=== PATIENT | male | born 1975 | race Caucasian/White ===

== ENCOUNTER 2017-05-21 21:24 | Emergency (ER) | payer MEDICAID, OTHER ==
[~2017-05-21] VITALS: Ht 172.7 cm; Wt 77.3 kg
[2017-05-21 22:08] VITALS: Ht 172.7 cm; Wt 77.3 kg
[2017-05-21] MEDS ORDERED: LIDOCAINE 1% (MDV) 20 ML INJ SC ONE (23:00)
[2017-05-21] MEDS ORDERED: HYDROCODONE/APAP (10/325) TAB PO ONE (23:30)
--- NOTE | 2017-05-21 23:38 | RADRPT ---
PROCEDURE: XR Wrist. CLINICAL INDICATION: Laceration. Left wrist pain TECHNIQUE: AP, lateral and oblique views of the left wrist were performed. COMPARISON: No prior studies are available for comparison. FINDINGS: No evidence of fracture, dislocation, or subluxation is seen. The bones appear well mineralized. The joint spaces are well preserved. Soft tissue swelling with bandaging and laceration about the dista l ulna are noted. RPTAT:HJJR IMPRESSION: Bandaging and soft tissue laceration about the distal ulna without acute osseous abnormality of the left wrist. Physician Bisi Date Time Electronically viewed and signed by Physician Bisi on 05/21/2017 23:37 /
--- NOTE | 2017-05-21 23:38 | RADRPT ---
PROCEDURE: XR Forearm. CLINICAL INDICATION: Laceration. Left forearm pain TECHNIQUE: AP and lateral views of the left forearm were obtained. COMPARISON: No prior studies are available for comparison. FINDINGS: There is normal mineralization and alignment. The radius and ulna are unremarkable. No fracture or o sseous lesion is identified. The joint spaces are preserved at the elbow and wrist. Soft tissue lace ration of the distal forearm is present with associated bandaging. RPTAT:HJJR IMPRESSION: Soft tissue laceration of the distal left forearm without retained radiopaque foreign body of acute osseous abnormality. Physician Bisi Date Time Electronically viewed and signed by Physician Bisi on 05/21/2017 23:38 /
--- NOTE | 2017-05-21 23:39 | RADRPT ---
PROCEDURE: XR Hand. CLINICAL INDICATION: Laceration. Left hand pain TECHNIQUE: PA, oblique and lateral views of the left hand were obtained. COMPARISON: None available. FINDINGS: Mineralization is within normal limits. No fracture or osseous lesion is identified. Joint spaces are preserved. Soft tissue laceration and bandaging about the fifth digit noted. There is no evide nce of retained radiopaque foreign body. RPTAT:HJJR IMPRESSION: No evidence of acute osseous abnormality involving the left hand. Physician Bisi Date Time Electronically viewed and signed by Physician Bisi on 05/21/2017 23:39 /
[2017-05-22] MEDS ORDERED: HYDR-906 PO (00:15)
[2017-05-22] MEDS ORDERED: CEPH-443 PO (00:15)
[2017-05-22] MEDS ORDERED: IBUP-1542 PO (00:15)
--- NOTE | 2017-05-22 00:35 | ERD ---
ER Documentation Chief Complaint Date/Time DATE: 05/22/17 TIME: 00:28 Chief Complaint left hand pain and laceration s/p hit by piece of glass HPI This is a 42-year-old male presenting to emergency department for left hand and wrist laceration. Patient states he was lifting a heavy near out of a pickup truck when it slipped and fell lacerating his left wrist and hand. Patient has 2.5 inch jagged laceration to lateral left wrist and 1.5 cm laceration to dorsal left hand. Patient states bleeding soon stopped after injury. No shattered or broken glass. Denies numbness or tingling. No loss of sensation. Patient can move all digits on left hand. ROS All systems reviewed and are negative except as per history of present illness. Medications Home Meds Active Scripts Ibuprofen* (Motrin*) 600 Mg Tab, 600 MG PO Q6, #15 TAB Prov:CLAUDIA ELLISON NP 05/22/17 Hydrocodone/Acetaminophen ([place] 5-325 Tablet) 1 Each Tablet, 1 TAB PO Q6H Y for PAIN, #7 TAB Prov:CLAUDIA ELLISON NP 05/22/17 Cephalexin* (Keflex*) 500 Mg Capsule, 500 MG PO QID for 5 Days, CAP Prov:CLAUDIA ELLISON NP 05/22/17 PMhx/Soc Medical and Surgical Hx: pt denies Medical Hx, pt denies Surgical Hx Hx Alcohol Use: No Hx Substance Use: No Hx Tobacco Use: No Smoking Status: Never smoker Physical Exam Vitals Vital Signs Date Time Temp Pulse Resp B/P Pulse Ox O2 Delivery O2 Flow Rate FiO2 05/21/17 22:08 98.5 74 18 117/82 95 Physical Exam Const: Alert Head: Atraumatic Eyes: Normal Conjunctiva ENT: Normal External Ears, Nose and Mouth. Neck: Full range of motion..~ No meningismus. Resp: Clear to auscultation bilaterally Cardio: Regular rate and rhythm, no murmurs Abd: Soft, non tender, non distended. Normal bowel sounds Skin: 2.5 inch jagged laceration to lateral left wrist. 1.5 cm jagged laceration to dorsal left hand near proximal third digit. No foreign body noted or palpated. Back: No midline or flank tenderness Ext: No cyanosis, or edema. Sensation fully intact. Capillary refill less than 3 seconds. Neur: Awake and alert Psych: Normal Mood and Affect Results 24 hrs Current Medications Medications (Trade) Dose Ordered Sig/Ronel Route PRN Reason Start Time Stop Time Status Last Admin Dose Admin Lidocaine (Xylocaine 1% (Mdv) 20 ml) 20 ml ONCE ONCE SC 05/21/17 23:00 05/21/17 23:01 DC Acetaminophen/ Hydrocodone Bitart ([place] (10)) 1 tab ONCE ONCE PO 05/21/17 23:30 05/21/17 23:31 DC 05/21/17 23:30 Procedures/MDM [place] [address] Radiology Main Line: [phone] DIAGNOSTIC IMAGING REPORT Patient: CORRIE HUITRON : 1975 Age: 42 Sex: M MR #: [id number] DOS: 05/21/172241 Ordering MD: CLAUDIA ELLISON NP Location: FTE Room/Bed: PROCEDURE: XR Forearm. CLINICAL INDICATION: Laceration. Left forearm pain TECHNIQUE: AP and lateral views of the left forearm were obtained. COMPARISON: No prior studies are available for comparison. FINDINGS: There is normal mineralization and alignment. The radius and ulna are unremarkable. No fracture or osseous lesion is identified. The joint spaces are preserved at the elbow and wrist. Soft tissue laceration of the distal forearm is present with associated bandaging. RPTAT:HJJR IMPRESSION: Soft tissue laceration of the distal left forearm without retained radiopaque foreign body of acute osseous abnormality. [place] [address] Radiology Main Line: [phone] DIAGNOSTIC IMAGING REPORT Patient: CORRIE HUITRON : 1975 Age: 42 Sex: M MR #: [id number] DOS: 05/21/172241 Ordering MD: CLAUDIA ELLISON NP Location: FTE Room/Bed: PROCEDURE: XR Hand. CLINICAL INDICATION: Laceration. Left hand pain TECHNIQUE: PA, oblique and lateral views of the left hand were obtained. COMPARISON: None available. FINDINGS: Mineralization is within normal limits. No fracture or osseous lesion is identified. Joint spaces are preserved. Soft tissue laceration and bandaging about the fifth digit noted. There is no evidence of retained radiopaque foreign body. RPTAT:HJJR IMPRESSION: No evidence of acute osseous abnormality involving the left hand. [place] [address] Radiology Main Line: [phone] DIAGNOSTIC IMAGING REPORT Patient: CORRIE HUITRON : 1975 Age: 42 Sex: M MR #: [id number] DOS: 05/21/17 2242 Ordering MD: CLAUDIA ELLISON NP Location: FTE Room/Bed: PROCEDURE: XR Wrist. CLINICAL INDICATION: Laceration. Left wrist pain TECHNIQUE: AP, lateral and oblique views of the left wrist were performed. COMPARISON: No prior studies are available for comparison. FINDINGS: No evidence of fracture, dislocation, or subluxation is seen. The bones appear well mineralized. The joint spaces are well preserved. Soft tissue swelling with bandaging and laceration about the distal ulna are noted. RPTAT:HJJR IMPRESSION: Bandaging and soft tissue laceration about the distal ulna without acute osseous abnormality of the left wrist. MDM: This is a 42-year-old male presenting to the emergency department for laceration to lateral left wrist and dorsal left hand after dropping a large heavy glass mirror onto left arm. X-ray left hand, x-ray left wrist and x-ray left forearm ordered.X-ray left hand reviewed by radiologist as no evidence of acute osseous abnormality and involving the left hand. X-ray left wrist reviewed by radiologist as bandaging and soft tissue laceration about the distal ulna without acute osseous abnormality of the left wrist. X-ray left forearm reviewed by radiologist as soft tissue laceration of the distal left forearm without retained radiopaque foreign body of acute osseous abnormality. Sensation is fully intact. Patient is able to flex and extend all 5 digits on left hand. Denies numbness or tingling. Capillary refill less than 3 seconds. Laceration repair as detailed below. Laceration Repair by me: Verbal consent obtained prior to procedure. Anesthesia: 1% lidocaine locally Location: Lateral left wrist, dorsal left hand Tendon/Joint/Nerves: No injury Foreign body: None detected after copious irrigation and exploration Technique: 8 to lateral left wrist simple Interrupted Sutures and Dermabond applied to dorsal left hand with Steri-Strips. Complexity: No subcutaneous sutures/mucosal repair/ edge excision Post Closure Length: 2.5 inches- wrist, 1.5 cm- hand Patient's bleeding was easily controlled in the department and there is no indication of anemia. No evidence of compartment syndrome, neurologic injury, vascular injury, open joint, tendon laceration, or foreign body. Patient is appropriate for outpatient follow up. Patient is given prescription for Keflex, ibuprofen and Cambridge. Xray left wrist velcro applied while in the ED and patient remains neurovascularly intact. 48 hour wound check. Scar minimization instructions given. Return to ED for any high fever, chest pain, difficulty breathing, shortness breath, wheezing, vomiting, diarrhea, abdominal pain or any new or worsening symptoms. Patient verbalizes understanding. All questions answered at discharge. Departure Diagnosis: Primary Impression: Laceration Condition: Stable Patient Instructions: Laceration, Hand Referrals: [facility] YOU HAVE RECEIVED A MEDICAL SCREENING EXAM AND THE RESULTS INDICATE THAT YOU DO NOT HAVE A CONDITION THAT REQUIRES URGENT TREATMENT IN THE EMERGENCY DEPARTMENT. FURTHER EVALUATION AND TREATMENT OF YOUR CONDITION CAN WAIT UNTIL YOU ARE SEEN IN YOUR DOCTORS OFFICE WITHIN THE NEXT 1-2 DAYS. IT IS YOUR RESPONSIBILITY TO MAKE AN APPOINTMENT FOR [facility]UP [facility]ARE. IF YOU HAVE A PRIMARY DOCTOR --you should call your primary doctor and schedule an appointment IF YOU DO NOT HAVE A PRIMARY DOCTOR YOU CAN CALL OUR PHYSICIAN REFERRAL HOTLINE AT IF YOU CAN NOT AFFORD TO SEE A PHYSICIAN YOU CAN CHOSE FROM THE FOLLOWING [facility] [address] [facility]. [facility] [address] [facility] [address] [facility]. [facility] [address] [facility]. [facility] [address] [facility]. [facility]. [address] [facility]. [facility] YOU HAVE RECEIVED A MEDICAL SCREENING EXAM AND THE RESULTS INDICATE THAT YOU DO NOT HAVE A CONDITION THAT REQUIRES URGENT TREATMENT IN THE EMERGENCY DEPARTMENT. FURTHER EVALUATION AND TREATMENT OF YOUR CONDITION CAN WAIT UNTIL YOU ARE SEEN IN YOUR DOCTORS OFFICE WITHIN THE NEXT 1-2 DAYS. IT IS YOUR RESPONSIBILITY TO MAKE AN APPOINTMENT FOR FOLOW-UP CARE. IF YOU HAVE A PRIMARY DOCTOR --you should call your primary doctor and schedule and appointment IF YOU DO NOT HAVE A PRIMARY DOCTOR YOU CAN CALL OUR PHYSICIAN REFERRAL HOTLINE AT . IF YOU CAN NOT AFFORD TO SEE A PHYSICIAN YOU CAN CHOSE FROM THE FOLLOWING [facility] INSTITUTIONS: [facility] [address] [place] [address] [facility] [address] [place] [address] [facility] + [facility] [address] [place] [address] Additional Instructions: Return to this facility in 2 DAYS for a follow-up exam.Return sooner if your condition worsens. Return to ED for any high fever, chest pain, difficulty breathing, shortness breath, wheezing, vomiting, diarrhea, abdominal pain or any new or worsening symptoms. CLAUDIA ELLISON NP May 22, 2017 00:35
[2017-05-22 00:59] VITALS: BP 115/68; PULSE 78; RESP 18; TEMP 98.6
== END 2017-05-22 01:01 | disposition home or self-care (01) ==
LOC: FTE 21:24
DX: S61.512A Laceration without foreign body of left wrist, initial encounter (principal); S61.412A Laceration without foreign body of left hand, initial encounter; W25.XXXA Contact with sharp glass, initial encounter; Y92.9 Unspecified place or not applicable
CPT/HCPCS: 12002; 73090; 73110; 73130; Z7502; Z7610

== ENCOUNTER 2017-05-23 18:19 | Emergency (ER) | payer MEDICAID ==
[~2017-05-23] VITALS: Ht 177.8 cm; Wt 77.5 kg
[~2017-05-23 18:19] MED LIST: CEPH-443 PO; HYDR-906 PO; IBUP-1542 PO
[2017-05-23 18:23] VITALS: Ht 177.8 cm; Wt 77.5 kg
[2017-05-23] MEDS ORDERED: HYDROCODONE/APAP (5/325) TAB PO ONE (20:00)
--- NOTE | 2017-05-23 20:01 | ERD ---
ER Documentation Chief Complaint Date/Time DATE: 05/23/17 TIME: 19:56 Chief Complaint 2nd day wound check on left hand and wrist HPI 42-year-old male presents to emergency department for a wound check on the left hand and left wrist area, patient was seen here 2 days ago, had a Dermabond placed on the laceration in the dorsal aspect of the left hand and some sutures placed on the left forearm. No fractures were on affected area. Patient denies any opening of the wound. Patient denies any numbness or tingling, patient denies any discharge or redness. Patient's complaining of pain sharp pain 4/10 scale, worse upon touching the area. ROS All systems reviewed and are negative except as per history of present illness. Medications Home Meds Active Scripts Ibuprofen* (Motrin*) 600 Mg Tab, 600 MG PO Q6, #15 TAB Prov:CLAUDIA ELLISON NP 05/22/17 Hydrocodone/Acetaminophen ([place] 5-325 Tablet) 1 Each Tablet, 1 TAB PO Q6H Y for PAIN, #7 TAB Prov:CLAUDIA ELLISON NP 05/22/17 Cephalexin* (Keflex*) 500 Mg Capsule, 500 MG PO QID for 5 Days, CAP Prov:CLAUDIA ELLISON NP 05/22/17 Allergies Allergies: Coded Allergies: No Known Allergy (Unverified , 05/23/17) PMhx/Soc Medical and Surgical Hx: pt denies Medical Hx, pt denies Surgical Hx Hx Alcohol Use: No Hx Substance Use: No Hx Tobacco Use: No Smoking Status: Never smoker FmHx Family History: No coronary disease, No diabetes, No other Physical Exam Vitals Vital Signs Date Time Temp Pulse Resp B/P Pulse Ox O2 Delivery O2 Flow Rate FiO2 05/23/17 18:23 98.8 68 18 120/78 99 Physical Exam GENERAL: The patient is well developed and appropriate for usual state of health, in no apparent distress. CHEST: Clear to auscultation bilaterally. There are no rales, wheezes or rhonchi. HEART: Regular rate and rhythm. No murmurs, clicks, rubs or gallops. No S3 or S4. ABDOMEN: Soft, nontender and nondistended. Good bowel sounds. No rebound or guarding. No gross peritonitis. No gross organomegaly or masses. No Ospina sign or McBurney point tenderness. BACK: No midline or flank tenderness. EXTREMITIES: Equal pulses bilaterally. There is no peripheral clubbing, cyanosis or edema. No focal swelling or erythema. Full range of motion. Grossly neurovascularly intact. NEURO: Alert and oriented. Cranial nerves 2-12 intact. Motor strength in all 4 extremities with 5/5 strength. Sensation grossly intact. Normal speech and gait. SKIN: Noted healing wound on the dorsal aspect of the left hand with Dermabond in place and Steri-Strips in place. Noted laceration wound in the left forearm to be healing well, no gaping of the wound, sutures are in place, no redness or swelling, no purulent discharge There is no apparent rash or petechia. The skin is warm and dry. HEMATOLOGIC AND LYMPHATIC: There is no evidence of excessive bruising or lymphedema. No gross cervical, axillary, or inguinal lymphadenopathy. Results 24 hrs Current Medications Medications (Trade) Dose Ordered Sig/Ronel Route PRN Reason Start Time Stop Time Status Last Admin Dose Admin Acetaminophen/ Hydrocodone Bitart ([place] (5/325)) 1 tab ONCE ONCE PO 05/23/17 20:00 05/23/17 20:01 Patient was given medication for pain here in emergency department, after treatment, patient verbalized feeling much better. Patient's pain is improved. Procedures/MDM Medical decision making: Patient's left hand and left wrist laceration was healing well, no fractures were on affected area, no redness or swelling, no gaping of the wound. No symptoms of any infection. Prescription were given before for ibuprofen and [place] and Keflex and advised to continue taking medications. No symptoms of any neurovascular compromise. Patient was advised to have the maximo removed in 7-10 days, keep the Dermabond the area dry for at least 7-10 days. Patient was advised to return to emergency department sooner for any worsening symptoms. Finger metal splint was applied on the left third finger to help with healing of the laceration on dorsal aspect of left hand since it is connected. The metacarpal. Patient has good circulation of the affected area after application of the metal splint. Disposition: Home. Stable. Current Medications Medications (Trade) Dose Ordered Sig/Ronel Route PRN Reason Start Time Stop Time Status Last Admin Dose Admin Acetaminophen/ Hydrocodone Bitart ([place] (5/325)) 1 tab ONCE ONCE PO 05/23/17 20:00 7/7/17 20:01 Departure Diagnosis: Primary Impression: Encounter for wound re-check Condition: Stable Patient Instructions: Wound Check, Lac F/U (No Infection) Additional Instructions: suture removal in 10 days, keep dermabonded area dry for 7-10 days CYRIL STEELE NP May 23, 2017 20:01
[2017-05-23 20:14] VITALS: BP 117/69; PULSE 60; RESP 18; TEMP 97.4
== END 2017-05-23 20:20 | disposition home or self-care (01) ==
LOC: FTE 18:19
DX: Z48.01 Encounter for change or removal of surgical wound dressing (principal)
CPT/HCPCS: 29130; Z7502; Z7610

== ENCOUNTER 2017-05-28 08:49 | Emergency (ER) | END 2017-05-28 09:43 | disposition home or self-care (01) | DX: Z48.01 Encounter for change or removal of surgical wound dressing (principal) ==

== ENCOUNTER 2017-05-31 10:02 | Emergency (ER) | payer MEDICAID ==
[~2017-05-31] VITALS: Wt 78.0 kg
--- NOTE | 2017-05-31 11:24 | ERD ---
ER Documentation Chief Complaint Date/Time DATE: 05/31/17 TIME: 11:18 Chief Complaint SUTURE REMOVAL HPI Patient is a 72-year-old male who presents to the emergency department for suture removal. Patient sustained a laceration to the dorsal surface of his left hand as well as on his wrist approximately 1 week ago after a piece of metal fell onto his hand. Patient denies any fevers or chills. Patient denies any active bleeding, discharge, redness, warmth or swelling to the affected site. Patient is concerned that he has a tendon injury given that he states he saw his tendon when he initially sustained his laceration. Patient denies any numbness or tingling. ROS All systems reviewed and are negative except as per history of present illness. Medications Home Meds Active Scripts Ibuprofen* (Motrin*) 600 Mg Tab, 600 MG PO Q6H Y for PAIN AND OR ELEVATED TEMP, #30 TAB Prov:MARIKA ALCALA PA-C 05/28/17 Ibuprofen* (Motrin*) 600 Mg Tab, 600 MG PO Q6, #15 TAB Prov:CLAUDIA ELLISON NP 05/22/17 Hydrocodone/Acetaminophen ([place] 5-325 Tablet) 1 Each Tablet, 1 TAB PO Q6H Y for PAIN, #7 TAB Prov:CLAUDIA ELLISON NP 05/22/17 Cephalexin* (Keflex*) 500 Mg Capsule, 500 MG PO QID for 5 Days, CAP Prov:CLAUDIA ELLISON NP 05/22/17 Allergies Allergies: Coded Allergies: No Known Allergy (Unverified , 05/23/17) PMhx/Soc History of Surgery: No Anesthesia Reaction: No Hx Neurological Disorder: No Hx Respiratory Disorders: No Hx Cardiac Disorders: No Hx Psychiatric Problems: No Hx Miscellaneous Medical Probl: No Hx Alcohol Use: No Hx Substance Use: No Hx Tobacco Use: No Physical Exam Vitals Vital Signs Date Time Temp Pulse Resp B/P Pulse Ox O2 Delivery O2 Flow Rate FiO2 05/31/17 10:05 98.0 78 18 152/71 99 Physical Exam GENERAL: Well-developed, well-nourished male. Appears in no acute distress. HEAD: Normocephalic, atraumatic. EYES: Pupils are equally reactive bilaterally. EOMs grossly intact. No conjunctival erythema. ENT: Moist mucous membranes. No uvula deviation. No kissing tonsils. NECK: Supple. No meningismus. Normal range of motion of the neck. LUNG: Clear to auscultation bilaterally. No rhonchi, wheezing, rales or coarse breath sounds. HEART: Regular rate and rhythm. No murmurs, rubs or gallops. EXTREMITIES: Equal pulses bilaterally. No peripheral clubbing, cyanosis or edema. No unilateral leg swelling. Limited range of motion of the left hand middle finger. NEUROLOGIC: Alert and oriented. Moving all four extremities without any difficulty. Normal speech. Steady gait. SKIN: Normal color. Warm and dry. Healing C-shaped laceration on the dorsal surface of the left hand. [address] No warmth, swelling, erythema, discharge noted. No wound dehiscence. Procedures/MDM MEDICAL DECISION MAKING: This is a 42-year-old male who presents for suture removal to laceration he sustained on his left hand. Vital signs were reviewed. Patient was afebrile. 8 sutures were removed from the patient's wound without any difficulty. No wound dehiscence or poor wound healing noted. Steri-Strips are placed over the affected area. Patient did display signs of decreased range of motion of the left finger. His middle finger is in a metal splint. Unable to rule out any tendon or partial tendon injuries at this time. Patient was advised that he will need to follow-up with [facility] as soon as possible. Patient given referral information. Patient agreed to go to of the clinic upon discharge today. At this time, the patient's presentation is most consistent with suture removal. DISCHARGE: At this time, the patient is stable for discharge and outpatient management. Post-procedural wound care was discussed with the patient. Patient advised to [facility] clinic immediately. I have instructed the patient to promptly return to the ER for any new or worsening symptoms including increasing pain, fever, warmth, redness or swelling. The patient and/or family expressed understanding of and agreement with this plan. All questions were answered. Home care instructions were provided. Patient's blood pressure was elevated (>120/80) but appears stable without evidence of hypertensive emergency, hypertensive urgency or end-organ failure. I had discussion with the patient about the risks of hypertension. I have advised the patient to follow up with his/her primary care physician for outpatient monitoring and treatment for hypertension in 2-3 days. I have instructed the patient to return to the ER for any new or worsening symptoms including chest pain, shortness of breath, headache, blurred vision, confusion, nausea, vomiting or LOC. Departure Diagnosis: Primary Impression: Encounter for removal of sutures Condition: Stable Patient Instructions: Suture Removal, No Complication Referrals: [facility] YOU HAVE RECEIVED A MEDICAL SCREENING EXAM AND THE RESULTS INDICATE THAT YOU DO NOT HAVE A CONDITION THAT REQUIRES URGENT TREATMENT IN THE EMERGENCY DEPARTMENT. FURTHER EVALUATION AND TREATMENT OF YOUR CONDITION CAN WAIT UNTIL YOU ARE SEEN IN YOUR DOCTORS OFFICE WITHIN THE NEXT 1-2 DAYS. IT IS YOUR RESPONSIBILITY TO MAKE AN APPOINTMENT FOR FOLOW-UP CARE. IF YOU HAVE A PRIMARY DOCTOR --you should call your primary doctor and schedule an appointment IF YOU DO NOT HAVE A PRIMARY DOCTOR YOU CAN CALL OUR PHYSICIAN REFERRAL HOTLINE AT IF YOU CAN NOT AFFORD TO SEE A PHYSICIAN YOU CAN CHOSE FROM THE FOLLOWING [facility] [address] [facility]. [facility] [address] [facility]. [facility] [address] [facility] [address] [facility] [address] [facility]. [facility] [address] [facility]. [facility] YOU HAVE RECEIVED A MEDICAL SCREENING EXAM AND THE RESULTS INDICATE THAT YOU DO NOT HAVE A CONDITION THAT REQUIRES URGENT TREATMENT IN THE EMERGENCY DEPARTMENT. FURTHER EVALUATION AND TREATMENT OF YOUR CONDITION CAN WAIT UNTIL YOU ARE SEEN IN YOUR DOCTORS OFFICE WITHIN THE NEXT 1-2 DAYS. IT IS YOUR RESPONSIBILITY TO MAKE AN APPOINTMENT FOR FOLOW-UP CARE. IF YOU HAVE A PRIMARY DOCTOR --you should call your primary doctor and schedule and appointment IF YOU DO NOT HAVE A PRIMARY DOCTOR YOU CAN CALL OUR PHYSICIAN REFERRAL HOTLINE AT . IF YOU CAN NOT AFFORD TO SEE A PHYSICIAN YOU CAN CHOSE FROM THE FOLLOWING [facility] INSTITUTIONS: [facility] [address] [place] [address] [facility] [address] [place] [address] [address] [address] [address] [facility] Additional Instructions: Go to [facility] for concerns of tendon injury GABRIELA. See referral information. Call your primary care doctor TOMORROW for an appointment during the next 1-2 days.See the doctor sooner or return here if your condition worsens before your appointment time. MOLLY ALBERTS PA-C May 31, 2017 11:24
== END 2017-05-31 11:20 | disposition home or self-care (01) ==
LOC: FTE 10:02
DX: Z48.02 Encounter for removal of sutures (principal)
CPT/HCPCS: 99281